=== PATIENT | female | born 1950 | race Caucasian/White ===

== ENCOUNTER 2021-11-18 12:18 | Emergency (ER) | payer MEDICARE, OTHER ==
[~2021-11-18] VITALS: Ht 165.1 cm; Wt 104.0 kg
[2021-11-18] MEDS ORDERED: IBUPROFEN 200 MG TABLET. PO ONE (12:30)
--- NOTE | 2021-11-18 12:31 | PHYS DOC ---
General Adult EDM: Chief Complaint: ANKLE PROBLEM HPI: HPI: Patient is a 71 year old female who presents with states that there is a plastic mat that her chair sits on and when she was walking from her chair back to her desk she tripped over the mat. She states that she twisted her right ankle and landed on her right side. She states she is unsure if she hit her head or not. She is not on any kind of blood thinner. She denies hitting her head, neck pain, back pain, syncope, dizziness, headache, vision change, focal weakness, numbness or tingling, chest pain, shortness of breath. Review of Systems: Review of Systems: Constitutional: Denies fever or chills. [] Eyes: Denies change in visual acuity. [] HENT: Denies nasal congestion or sore throat. [] Respiratory: Denies cough or shortness of breath. [] Cardiovascular: Denies chest pain or + right ankle edema. [] GI: Denies abdominal pain, nausea, vomiting, bloody stools or diarrhea. [] : Denies dysuria. [] Musculoskeletal: Denies back pain or + right ankle joint pain. [] Integument: Denies rash. [] Neurologic: Denies headache, focal weakness or sensory changes. [] Endocrine: Denies polyuria or polydipsia. [] Lymphatic: Denies swollen glands. [] Psychiatric: Denies depression or anxiety. [] Heart Score: C/O Chest Pain: No Physical Exam: PE: Constitutional: Well developed, well nourished, no acute distress, non-toxic appearance. [] HENT: Normocephalic, atraumatic, bilateral external ears normal, oropharynx moist, no oral exudates, nose normal. [] Eyes: PERRLA, EOMI, conjunctiva normal, no discharge. [] Neck: Normal range of motion, no tenderness, supple, no stridor. [] Cardiovascular:Heart rate regular rhythm, no murmur [] Lungs & Thorax: Bilateral breath sounds clear to auscultation [] Abdomen: Bowel sounds normal, soft, no tenderness, no masses, no pulsatile masses. [] Skin: Warm, dry, no erythema, no rash. [] Back: No tenderness, no CVA tenderness. [] Extremities: No tenderness, no cyanosis, no clubbing, right ankle ROM intact but limited due to swelling and pain, right ankle 2+ edema. [] Neurologic: Alert and oriented X 3, normal motor function, normal sensory function, no focal deficits noted. [] Psychologic: Affect normal, judgement normal, mood normal. [] EKG: EKG: [] Radiology/Procedures: Radiology/Procedures: [] Impression: [place] [address] IMAGING REPORT Signed PATIENT: JAY MEDINA ACCOUNT: [id number] : 1950 LOCATION: ER AGE: 71 SEX: F EXAM STATUS: PRE ER ORD. PHYSICIAN: EPIFANIO CONRAD APRN REASON: fall, twisted, swelling PROCEDURE: ANKLE RIGHT 3V Study: XR EXAM OF ANKLE_RIGHT 3VIEWS Indication: Fall. Twisting injury. Swelling. Comparison: None. Findings: Acute Schneider type B distal fibular fracture with no more than 2 mm displacement. No fracture seen at the posterior or medial malleoli. Ankle alignment is within normal limits considering the absence of weightbearing. Probable os trigonum. Small plantar calcaneal spur. Osteopenia. Edematous soft tissues. Relatively mild arthrosis. Impression: Acute minimally displaced Schneider type B distal fibula fracture. Electronically signed by: LETTY MCKEON MD (11/18/2021 12:56 PM) [id number] DICTATED and SIGNED BY: LETTY MCKEON MD DATE: 11/18/21 [id number] [address] IMAGING REPORT Signed PATIENT: JAY MEDINA ACCOUNT: [id number] : 1950 LOCATION: ER AGE: 71 SEX: F EXAM STATUS: PRE ER ORD. PHYSICIAN: EPIFANIO CONRAD APRN REASON: fall PROCEDURE: CT HEAD AND CERVICAL SPINE WO CT HEAD AND C-SPINE WO Date: 11/18/2021 12:28 PM Clinical Indication: Pain, fall Comparison: None. Technique: 5 mm axial tomographic images were obtained of the head without contrast. These were viewed on brain and bone windows. Noncontrast CT of the cervical spine was performed. Sagittal and coronal reformats were performed and evaluated. One or more of the following dose reduction techniques were utilized: Automated exposure control (AEC), Adjustment of mA and/or kV according to patient size, Use of iterative reconstruction technique such as ASiR, CT scan done according to ALARA and image gently/image wisely HEAD FINDINGS: Mild generalized cerebral and cerebellar volume loss. Mild nonspecific periventricular hypoattenuation, most commonly seen with chronic small vessel ischemic disease. Left thalamic chronic appearing lacunar infarct. No intra- or extra-axial mass or fluid collection. No acute hemorrhage. The ventricles are normal in size, shape, and morphology. The hernandez-white matter junction is normal. The basilar cisterns are patent. The visualized paranasal sinuses are normal. The visualized portions of the orbits and globes are normal. The mastoid air cells are clear. No aggressive osseous lesion or fracture. CERVICAL SPINE FINDINGS: The cervical spine is normally aligned. No acute fracture. No aggressive lytic or blastic osseous lesions. Moderate multilevel degenerative disc space height loss. Multilevel mild spinal canal stenosis secondary to disc protrusions and marginal osteophytes. Multilevel mild and moderate neuroforaminal narrowing secondary to uncovertebral arthrosis. Multilevel mild facet arthrosis. Right thyroid 2 cm nodule. No cervical lymphadenopathy. Bilateral carotid atherosclerosis. The visualized aerodigestive tract is normal. The visualized portions of the lungs are clear. IMPRESSION: 1. No acute intracranial process. 2. No acute cervical spine fracture. 3. Left thalamic lacunar infarct appears chronic, although no priors for comparison. 4. Right thyroid 2 cm nodule could be further characterized with nonemergent ultrasound, if not performed previously. Electronically signed by: Nabila Purdy MD (11/18/2021 1:00 PM) [facility] DICTATED and SIGNED BY: NABILA PURDY MD DATE: 11/18/21 [id number] 0 Course & Med Decision Making: Course & Med Decision Making Pertinent Labs and Imaging studies reviewed. (See chart for details) See HPI. Alert and oriented x4. Speaks in full clear sentences. Right ankle is 2-3+ swelling without deformity. There is no laxity. Pedal pulse strong are present. Skin pink warm and dry. Cap refill less than 2 seconds. She does have some range of motion in the ankle but it is limited due to swelling and some pain. She rates her pain a 6 out of 10 aching pain that is when she moves it. She states otherwise she is not in extreme pain. No focal bony spinal tenderness. Full range of motion of her neck. No deformity felt to spine and there is no bruising to her back or anywhere else on her body. No other traumas anywhere. No abrasions, lacerations or bruising seen. I spoke to Dr. Hauser concerning the patient. He states the patient can follow-up. Patient is placed in a posterior and stirrup splint. I will give her a prescription for crutches as we do not have any crutches here at the ED. Splint assessment: Neurovascularly intact post splint replacement with good fit. Patient's extremity symptoms have stabilized well they have been evaluated in the department and are appropriate for outpatient follow-up. No evidence of compartment syndrome, neurologic injury, vascular injury, open joint, open fracture, tendon laceration, or foreign body. [] Dragon Disclaimer: Dragon Disclaimer: This electronic medical record was generated, in whole or in part, using a voice recognition dictation system. Departure Departure Impression: Primary Impression: Fibula fracture Qualified Codes: S82.831A - Other fracture of upper and lower end of right fibula, initial encounter for closed fracture Additional Impression: Fall Qualified Codes: W19.XXXA - Unspecified fall, initial encounter Disposition: HOME / SELF CARE / HOMELESS Condition: STABLE Referrals: NO PCP (PCP) GABRIELA HAUSER Jr. DO Patient Instructions: Fall Prevention and Home Safety, Fibular Fracture with Rehab-SportsMed, Fibular Fracture, Ankle, Adult, Treated with or without Immobilization Additional Instructions: Follow-up with orthopedics by calling on Saturday morning to get a appointment. Do not bear weight on the extremity. Use ice and elevation to help with any kind of pain or swelling. Medication as prescribed and with food and remember pain medications will make you sleepy so you should not drive, work or drink alcohol while on this medication. Scripts Hydrocodone Bit/Acetaminophen (HYDROCODONE-APAP 5-325 ) 1 Tab Tablet 1 TAB PO PRN Q6HRS PRN for PAIN, #15 TAB 0 Refills Prov: EPIFANIO CONRAD APRN 11/18/21 Ibuprofen (IBUPROFEN) 600 Mg Tablet 600 MG PO PRN Q6HRS PRN for INFLAMMATION, #30 TAB Prov: EPIFANIO CONRAD APRN 11/18/21 EPIFANIO CONRAD APRN Nov 18, 2021 12:31
--- NOTE | 2021-11-18 12:58 | RAD ---
Study: XR EXAM OF ANKLE_RIGHT 3VIEWS Indication: Fall. Twisting injury. Swelling. Comparison: None. Findings: Acute Schneider type B distal fibular fracture with no more than 2 mm displacement. No fracture seen at t he posterior or medial malleoli. Ankle alignment is within normal limits considering the absence of w eightbearing. Probable os trigonum. Small plantar calcaneal spur. Osteopenia. Edematous soft tissues. Relatively mild arthrosis. Impression: Acute minimally displaced Schneider type B distal fibula fracture. Electronically signed by: LETTY MCKEON MD (11/18/2021 12:56 PM) [id number]
--- NOTE | 2021-11-18 13:03 | RAD ---
CT HEAD AND C-SPINE WO Date: 11/18/2021 12:28 PM Clinical Indication: Pain, fall Comparison: None. Technique: 5 mm axial tomographic images were obtained of the head without contrast. These were view ed on brain and bone windows. Noncontrast CT of the cervical spine was performed. Sagittal and butler l reformats were performed and evaluated. One or more of the following dose reduction techniques were utilized: Automated exposure control (AEC), Adjustment of mA and/or kV according to patient size, Us e of iterative reconstruction technique such as ASiR, CT scan done according to ALARA and image gentl y/image wisely HEAD FINDINGS: Mild generalized cerebral and cerebellar volume loss. Mild nonspecific periventricular hypoattenuatio n, most commonly seen with chronic small vessel ischemic disease. Left thalamic chronic appearing lac unar infarct. No intra- or extra-axial mass or fluid collection. No acute hemorrhage. The ventricles are normal in size, shape, and morphology. The hernandez-white matter junction is normal. The basilar cisterns are paten t. The visualized paranasal sinuses are normal. The visualized portions of the orbits and globes are no rmal. The mastoid air cells are clear. No aggressive osseous lesion or fracture. CERVICAL SPINE FINDINGS: The cervical spine is normally aligned. No acute fracture. No aggressive lytic or blastic osseous les ions. Moderate multilevel degenerative disc space height loss. Multilevel mild spinal canal stenosis second calixto to disc protrusions and marginal osteophytes. Multilevel mild and moderate neuroforaminal narrowi ng secondary to uncovertebral arthrosis. Multilevel mild facet arthrosis. Right thyroid 2 cm nodule. No cervical lymphadenopathy. Bilateral carotid atherosclerosis. The visual ized aerodigestive tract is normal. The visualized portions of the lungs are clear. IMPRESSION: 1. No acute intracranial process. 2. No acute cervical spine fracture. 3. Left thalamic lacunar infarct appears chronic, although no priors for comparison. 4. Right thyroid 2 cm nodule could be further characterized with nonemergent ultrasound, if not perfo rmed previously. Electronically signed by: Williams Purdy MD (11/18/2021 1:00 PM) [facility]
[2021-11-18] MEDS ORDERED: HYDR-2761 PO (13:14)
[2021-11-18] MEDS ORDERED: IBUP-1007 PO (13:14)
[2021-11-18 15:28] VITALS: BP 155/76
== END 2021-11-18 15:35 | disposition home or self-care (01) ==
LOC: ER 12:18
DX: S82.831A Other fracture of upper and lower end of right fibula, initial encounter for closed fracture (principal); W18.09XA Striking against other object with subsequent fall, initial encounter; Y93.01 Activity, walking, marching and hiking; Y92.89 Other specified places as the place of occurrence of the external cause; Y99.8 Other external cause status
CPT/HCPCS: 29515; 70450; 72125; 73610; 99285